=== PATIENT | female | born 1975 ===

== ENCOUNTER 2016-02-17 17:19 | Emergency (ER) | payer BC ==
[2016-02-17 18:29] VITALS: BP 137/105
--- NOTE | 2016-02-17 18:51 | UC ---
Lower Extremity/Ankle HPI - HPI Summary HPI Summary: tried to stop a sled with her foot at 12 noon c/o increasing pain in top of left foot - History of Current Complaint Chief Complaint: UCLowerExtremity Stated Complaint: FOOT INJURY Time Seen by Provider: 02/17/16 18:43 Hx Obtained From: Patient Hx Last Menstrual Period: 3 WEEKS AGO ?: No Onset/Duration: Sudden Onset, Still Present Severity Initially: Moderate Severity Currently: Moderate Aggravating Factor(s): Standing, Ambulation Alleviating Factor(s): Rest, Elevation Able to Bear Weight: Yes - Allergies/Home Medications Allergies/Adverse Reactions: Allergies Allergy/AdvReac Type Severity Reaction Status Date / Time No Known Allergies Allergy Verified 02/17/16 18:29 Home Medications: Home Medications NK [No Home Medications Reported] 02/17/16 [History Confirmed 02/17/16] PMH/Surg Hx/FS Hx/Imm Hx Previously Healthy: Yes - Surgical History Surgical History: Yes Surgery Procedure, Year, and Place: WISDOM TEETH - Family History Known Family History: Positive: None Family History: no cardio vascular issues reported in family lineage - Social History Occupation: Employed Full-time Lives: With Family Alcohol Use: Occasionally Substance Use Type: None Smoking Status (MU): Never Smoked Tobacco Review of Systems Constitutional: Negative Skin: Negative Eyes: Negative ENT: Negative Respiratory: Negative Cardiovascular: Negative Gastrointestinal: Negative Genitourinary: Negative Motor: Negative Musculoskeletal: Arthralgia - 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 Negative: Nasal congestion, Nasal drainage, Trismus, Muffled/hoarse voice Dental Exam: Normal Neck exam: Normal Neck: Positive: Supple, Nontender Respiratory Exam: Normal Respiratory: Positive: Chest non-tender, Normal breath sounds, No respiratory distress Cardiovascular Exam: Normal Cardiovascular: Positive: RRR, Pulses Normal, Brisk Capillary Refill Musculoskeletal: Positive: Strength Intact, ROM Intact, Edema @ - left foot Neurological Exam: Normal Neurological: Positive: Alert, Muscle Tone Normal Psychological Exam: Normal Psychological: Positive: Normal Response To Family Skin Exam: Normal Diagnostics - Laboratory Diagnostic Studies Completed/Ordered: sesimoid bone fx great toe (possible)--- however clinicly this is not where patient is having pain Lower Extremity Course/Dx - Course Course Of Treatment: rice, ted, post op shoe, Ibuprofen follow with ortho/pcp prn - Differential Dx/Diagnosis Differential Diagnosis/HQI/PQRI: Contusion, Fracture (Closed), Sprain, Strain Provider Diagnoses: Contusion left foot Discharge - Discharge Plan Condition: Stable Disposition: HOME Patient Education Materials: Ibuprofen (By mouth), Foot Contusion (ED), RICE Therapy (ED) Referrals: [facility] [place] [facility] REFERRAL [Outside] - If Needed No Primary Care Phys,NOPCP [Primary Care Provider] -
--- NOTE | 2016-02-17 19:24 | RAD ---
Indication: Lateral LEFT foot pain radiating around the entire foot following injury. Comparison: None. Technique: AP and lateral views LEFT foot. Report: Transverse lucency through the medial sesamoid at the first metatarsal phalangeal joint which may reflect congenital bipartite sesamoid or sequela of previous fracture. This is likely not acute given that the symptoms are predominantly laterally. The remainder of the foot is without cortical disruption or suspicious trabecular irregularity to suggest fracture. Normal articular alignment. IMPRESSION: Correlate clinically to exclude a nondisplaced transverse fracture through the medial sesamoid at the first metatarsal phalangeal joint.
== END 2016-02-17 19:39 | disposition home or self-care (01) ==
LOC: UCEAST 17:19
DX: S90.32XA Contusion of left foot, initial encounter (principal); W20.8XXA Other cause of strike by thrown, projected or falling object, initial encounter; Y93.9 Activity, unspecified; Y92.9 Unspecified place or not applicable
CPT/HCPCS: 99213; G0463